=== PATIENT | female | born 1990 | race Caucasian/White ===

== ENCOUNTER 2022-08-17 11:58 | Inpatient (IN) | payer OTHER ==
[~2022-08-17] VITALS: Ht 154.9 cm; Wt 69.9 kg
[2022-08-21] MEDS ORDERED: IRON325 MG PO (06:24)
[2022-08-21] MEDS ORDERED: PRENATAL 19 CH1 EAC1 PO (06:24)
== END 2022-08-23 17:04 | disposition home or self-care (01) | DRG 785 ==
LOC: OB/GYN 08-21 05:50 → O/R 08-21 05:50 → OB/GYN 08-21 07:00
PROVIDERS: ADMIT Obstetrics & Gynecology; ATTEND Obstetrics & Gynecology
PROC: 0UB70ZZ Excision of Bilateral Fallopian Tubes, Open Approach (ICD-10-PCS; 2022-08-21)
PROC: 4A1HXCZ Monitoring of Products of Conception, Cardiac Rate, External Approach (ICD-10-PCS; 2022-08-21)
PROC: 10D00Z1 Extraction of Products of Conception, Low, Open Approach (ICD-10-PCS; principal; 2022-08-21 07:00)
DX: O34.211 Maternal care for low transverse scar from previous cesarean delivery (principal); Z3A.39 39 weeks gestation of pregnancy; Z37.0 Single live birth; Z20.822 Contact with and (suspected) exposure to COVID-19; Z30.2 Encounter for sterilization